=== PATIENT | female | born 1990 ===

== ENCOUNTER 2020-10-19 00:43 | Inpatient (IN) ==
[2020-10-19] MEDS ORDERED: OXYTOCIN 30 UNITS/500 ML BAG IV PRN ×2 (00:55→11:59)
[2020-10-19] MEDS ORDERED: ceFAZolin 2000MG 2,000 MG/15 ML SYR IV STA (00:55)
--- NOTE | 2020-10-19 01:14 | History & Physical Report ---
Date of Service October 19, 2020 Assessment & Plan (1) Uterine contractions at greater than 20 weeks of gestation: 29-year-old at 39 weeks and 5 days of gestation presenting with contractions and an active labor. Vital signs stable afebrile heart rate reassuring GBS positive Plan to admit, monitor, labs and epidural for pain per patient request. (2) GBS (group B Streptococcus carrier), +RV culture, currently : Admission and Anticipated Discharge Date Admission Date: October 19, 2020 History of Present Illness Primary Care Provider: NO PCP Patient is a 29-year-old at 39 weeks and 5 days of gestation who has been feeling contractions since yesterday 7 PM, they got closer and more painful and she walked in. Patient denies leakage of fluid or vaginal bleeding. Patient reports good movements. Her has been uncomplicated except GBS positive. Coronavirus testing was negative, she denies any symptoms or recent exposure. She is uncomfortable, crying and asking for epidural for pain. Patient History [employer] History No h/o of STD Review of Systems All systems reviewed & are unremarkable except as noted in HPI & below Physical Exam Constitutional: WD/WN, vitals as above well developed, well nourished and + acute distress (With contractions) Gastrointestinal (Abdomen): normal bowel sounds, soft, nontender, no hepatosplenomegaly (Gravid) Genitourinary: OB Exam Abdomen: + vertex Manual OB Exam: + cervical dilation 5 cm, + cervical effacement 80% and + station -1 OB Exam Monitor Tracing: + category I Bedside ultrasound, vertex.
[2020-10-19] MEDS: LACTATED RINGER'S 1,000 ML IV PRN ×3 (01:20→09:27)
[2020-10-19] MEDS ORDERED: ONDANSETRON INJ 2 MG/ML 2 ML VIAL IV PRN ×2 (01:21→02:00)
[2020-10-19] MEDS ORDERED: fentaNYL citrate 100 MCG/2 ML VIAL ONE (01:23)
[2020-10-19] MEDS ORDERED: BUPIVACAINE 0.25% 30 ML VIAL ONE (01:23)
[2020-10-19] MEDS ORDERED: fentaNYL 2MCG/ML ROPIVACAINE 1.25MG/ML 100 ML BAG EPI ONE (01:23)
[2020-10-19] MEDS ORDERED: ePHEDrine sulfate 50 MG/ML AMP ONE (01:23)
[2020-10-19] MEDS ORDERED: SODIUM CHLORIDE 0.9% INJ 10 ML VIAL ONE (01:23)
[2020-10-19 01:26] LABS: Hematocrit (blood only) 39.4 % (37-47); Hemoglobin 13.7 g/dL (12.0-16.0); Mean Corpuscular Hemoglobin 33.5 pg (25-34); Mean Corpuscular Hgb Conc 34.8 g/dL (32-36); Mean Corpuscular Volume 96.3 fL (80-100); Mean Platelet Volume 10.7 fL (7.4-10.4); Platelet Count 200 K/uL (130-400); RDW Coefficient of Variation 12.5 % (11.5-14.5); Red Blood Count 4.09 M/uL (4.2-5.4); White Blood Count 12.33 K/uL (4.8-10.8)
--- NOTE | 2020-10-19 01:35 | Anesthesiology Consultation ---
Date of Service October 19, 2020 Assessment & Plan (1) Encounter for pre-operative examination: Chart Review Chart Review: Acceptable Risk for Labor Epidural Consults Requested none ASA ASA2 Proposed Anesthesia Anesthesia Type: Labor Epidural Risk / Benefits Reviewed With: PT / POA / Parent / Guardian, Accepts Plan and Informed Consent Obtained History Height/Weight Height: 5 ft 5 in Weight: 70.76 kg Allergies Allergy/AdvReac Type Severity Reaction Status Date / Time amoxicillin Allergy Hives Verified 10/19/20 01:19 Medications Active Medications Generic Name Dose Route Start Last Admin Trade Name Freq PRN Reason Stop Dose Admin Lactated Ringer's 1,000 mls @ 150 mls/hr 10/19/20 00:55 10/19/20 01:20 Lr IV 10/21/20 00:54 999 mls/hr .[id number] PRN Administration L&D Protocol Protocol Exercise / Class Metabolic Activity II 4-5 Yardwork/Stairs/Walk up hill Past Anesthesia History No Hx of Anesthesia Complications and No Family Hx of Anesthesia Complications History of PONV No Hx of PONV and No Hx of Motion Sickness Social History Smoking Status: Never smoker Do You Dip or Chew Tobacco: No Hx Alcohol Use: No Hx Substance Use: No substance use type: does not use Physical Exam Vital Signs Last Vital Signs Pulse 86 10/19/20 01:25 BP 98/59 L 10/19/20 01:25 ENMT Mouth: no dentition abnormality Thyromental Distance: > or= 3.5 Finger Breadths Mallampati Class: II Neck normal visual inspection Respiratory normal respiratory effort Auscultation: lungs clear to auscultation bilaterally Cardiovascular Rate/Rhythm: regular rate and regular rhythm Testing Laboratory Results 10/19/20 01:09
[2020-10-19] MEDS ORDERED: diphenhydrAMINE 50 MG/ML VIAL IV PRN (02:00)
[2020-10-19] MEDS ORDERED: NALOXONE HCL 1 MG in SODIUM CHLORIDE 0.9% 1000ML 1,000 ML IV PRN (02:00)
[2020-10-19] MEDS ORDERED: fentaNYL 2MCG/ML ROPIVACAINE 1.25MG/ML 100 ML BAG EPI PRN (02:00)
[2020-10-19] MEDS ORDERED: NALOXONE HCL 0.4 MG/1 ML VIAL/CARP IV PRN (02:00)
[2020-10-19] MEDS ORDERED: ePHEDrine sulfate 50 MG/ML AMP IV PRN (02:00)
[2020-10-19] MEDS ORDERED: ceFAZolin 2000MG 2,000 MG/15 ML SYR IV SCH (09:00)
--- NOTE | 2020-10-19 10:20 | Obstetrical Progress Note ---
Date of Service October 19, 2020 Assessment & Plan Admission and Anticipated Discharge Date Admission Date: October 19, 2020 Physical Exam Genitourinary: Manual OB Exam: + cervical dilation 10 cm, + cervical effacement 100%, + station 0 and + amniotic fluid clear OB Exam Monitor Tracing: + external FHT monitor used, + external uterine monitor used, + categor y I and + normal FHT variability AROM with amni-hook clear fluid Results & Data ([facility]) Vital Signs (Past 12 Hours) Vital Signs Temp Pulse Resp BP Pulse Ox 10/19/20 10:17 128 H 82 L 10/19/20 10:12 97 H 99 10/19/20 10:11 106 H 88 L 10/19/20 10:07 108 H 115/67 98 10/19/20 10:06 98 H 84 L 10/19/20 10:02 97 H 97 10/19/20 09:57 91 H 100 10/19/20 09:52 78 101/55 L 99 10/19/20 09:47 81 100 10/19/20 09:42 82 100 10/19/20 09:37 90 127/75 100 10/19/20 09:32 78 100 10/19/20 09:30 18 10/19/20 09:27 83 100 10/19/20 09:22 94 H 100 10/19/20 09:21 139 H 112/71 93 10/19/20 09:17 86 98 10/19/20 09:12 93 H 99 10/19/20 09:08 90 104/60 10/19/20 09:07 89 99 10/19/20 09:06 99 H 89 L 10/19/20 09:02 75 98 10/19/20 08:57 71 100 10/19/20 08:52 74 100 10/19/20 08:51 93 H 112/66 90 10/19/20 08:47 82 98 10/19/20 08:44 88 93 10/19/20 08:42 75 100 10/19/20 08:38 81 107/61 10/19/20 08:37 88 100 10/19/20 08:34 91 H 88 L 10/19/20 08:32 86 98 10/19/20 08:27 86 98 10/19/20 08:22 101 H 97 10/19/20 08:21 96 H 114/66 10/19/20 08:20 86 90 10/19/20 08:17 76 99 10/19/20 08:14 87 93 10/19/20 08:12 83 95 10/19/20 08:07 83 102/60 99 10/19/20 08:03 101 H 93 10/19/20 08:02 77 96 10/19/20 07:57 73 96 10/19/20 07:52 78 97 10/19/20 07:51 82 106/60 10/19/20 07:47 74 99 10/19/20 07:42 74 98 10/19/20 07:41 85 92 10/19/20 07:37 79 98 10/19/20 07:36 75 99/57 L 10/19/20 07:32 78 99 10/19/20 07:27 83 100 10/19/20 07:25 89 87 L 10/19/20 07:22 81 113/59 L 99 10/19/20 07:17 94 H 96 10/19/20 07:12 84 100 10/19/20 07:07 83 113/65 100 10/19/20 07:02 86 99 10/19/20 07:00 37.0 C 18 10/19/20 06:57 85 99 10/19/20 06:53 83 106/61 10/19/20 06:52 91 H 96 10/19/20 06:51 84 92 10/19/20 06:47 88 100 10/19/20 06:44 85 128/66 94 10/19/20 06:42 86 99 10/19/20 06:37 92 H 96 10/19/20 06:36 99 H 92 10/19/20 06:32 84 100 10/19/20 06:30 18 10/19/20 06:27 83 99 10/19/20 06:22 97 H 101/57 L 98 10/19/20 06:17 85 96 10/19/20 06:16 87 94 10/19/20 06:12 95 H 97 10/19/20 06:07 78 104/59 L 94 10/19/20 06:02 84 96 10/19/20 06:01 81 94 10/19/20 06:00 18 10/19/20 05:57 83 93 10/19/20 05:52 76 99/55 L 93 10/19/20 05:47 77 94 10/19/20 05:42 82 94 10/19/20 05:37 78 96 10/19/20 05:36 84 98/58 L 10/19/20 05:32 87 98 10/19/20 05:30 18 10/19/20 05:29 79 94 10/19/20 05:27 80 96 10/19/20 05:23 83 104/59 L 10/19/20 05:22 82 96 10/19/20 05:17 77 96 10/19/20 05:12 84 99 10/19/20 05:08 81 105/55 L 10/19/20 05:07 84 99 10/19/20 05:02 94 H 98 10/19/20 05:01 97 H 93 10/19/20 05:00 37.4 C 18 10/19/20 04:57 86 98 10/19/20 04:52 92 H 98 10/19/20 04:51 96 H 108/63 92 10/19/20 04:47 80 93 10/19/20 04:42 79 93 10/19/20 04:40 78 94 10/19/20 04:37 76 94 10/19/20 04:36 81 86/51 L 10/19/20 04:34 99 H 94 10/19/20 04:32 78 93 10/19/20 04:28 97 H 94 10/19/20 04:27 92 H 92 10/19/20 04:22 76 93 10/19/20 04:21 82 79/48 L 10/19/20 04:17 77 93 10/19/20 04:12 76 93 10/19/20 04:07 75 86/51 L 93 10/19/20 04:02 75 93 10/19/20 04:00 18 10/19/20 03:57 79 93 10/19/20 03:52 75 89/53 L 94 10/19/20 03:46 80 95 10/19/20 03:42 79 94 10/19/20 03:41 76 94 10/19/20 03:36 82 99/53 L 96 10/19/20 03:31 85 96 10/19/20 03:30 18 10/19/20 03:26 79 96 10/19/20 03:22 82 101/55 L 90 10/19/20 03:21 92 H 100 10/19/20 03:16 82 100 10/19/20 03:11 89 99 10/19/20 03:07 100 H 99/50 L 10/19/20 03:06 84 100 10/19/20 03:01 97 H 99 10/19/20 03:00 18 10/19/20 02:56 91 H 98 10/19/20 02:51 89 101/56 L 98 10/19/20 02:49 82 109/59 L 10/19/20 02:47 90 103/55 L 10/19/20 02:46 95 H 99 10/19/20 02:45 95 H 107/56 L 91 10/19/20 02:43 118 H 101/67 10/19/20 02:41 90 106/56 L 97 10/19/20 02:39 78 113/57 L 10/19/20 02:37 104 H 90/59 L 10/19/20 02:36 85 93 10/19/20 02:33 100 H 84/59 L 10/19/20 02:31 82 86 L 10/19/20 02:30 18 10/19/20 02:29 74 96/57 L 89 L 10/19/20 02:26 78 89 L 10/19/20 02:25 18 10/19/20 02:23 81 96/54 L 91 10/19/20 02:21 82 85 L 10/19/20 02:20 18 10/19/20 02:18 80 88 L 10/19/20 02:16 77 100 10/19/20 02:15 84 117/57 L 10/19/20 02:13 100 H 91 10/19/20 02:11 95 H 82 L 10/19/20 02:10 18 10/19/20 02:06 106 H 98 10/19/20 02:05 93 H 18 103/59 L 10/19/20 02:03 76 102/58 L 10/19/20 02:02 78 104/59 L 10/19/20 02:01 76 100 10/19/20 02:00 83 18 92 10/19/20 01:59 85 101/55 L 10/19/20 01:57 77 110/55 L 10/19/20 01:55 76 18 111/52 L 97 10/19/20 01:53 86 104/59 L 10/19/20 01:52 87 92 10/19/20 01:50 96 H 100/62 94 10/19/20 01:46 105 H 92 10/19/20 01:45 103 H 96 10/19/20 01:40 99 H 94 10/19/20 01:25 36.5 C 86 18 98/59 L
--- NOTE | 2020-10-19 11:09 | Delivery Summary ---
Vaginal Delivery Summary Date of Service October 19, 2020 Vaginal Delivery Summary Delivery Note live female over intact perineum with delayed cord clamping with Apgars 9/9 weight pending. Cord blood obtained followed by spontaneous delivery of intact placenta. No tears. EBL 250 ml. Final sponge and instrument count are correct. Mom and baby stable.
[2020-10-19] MEDS ORDERED: HYDROCORTISONE ACETATE 25 MG SUPP PR PRN (11:59)
[2020-10-19] MEDS ORDERED: DIPHTHERIA/TETANUS/PERTUSSIS 0.5 ML SYR/VIAL IM ONE (11:59)
[2020-10-19] MEDS ORDERED: SUPERCREAM 0.870% 15 GM JAR EXT PRN (11:59)
[2020-10-19] MEDS ORDERED: BENZOCAINE 20% AER SPR 82.5 GM CAN EXT PRN (11:59)
[2020-10-19] MEDS ORDERED: bisacodyL 10 MG SUPP PR PRN (11:59)
[2020-10-19] MEDS: IBUPROFEN 600 MG TAB PO PRN ×2 (15:43→20:25)
[2020-10-19] MEDS: ACETAMINOPHEN 325 MG TAB PO PRN (17:31)
[2020-10-19] MEDS: DOCUSATE SODIUM 100 MG CAP PO SCH (20:25)
[2020-10-19] MEDS: SERTRALINE HCL 50 MG TABLET PO SCH (21:25)
[2020-10-20] MEDS: IBUPROFEN 600 MG TAB PO PRN ×6 (00:05→23:50)
[2020-10-20] MEDS: ACETAMINOPHEN 325 MG TAB PO PRN ×3 (03:37→15:11)
[2020-10-20 06:34] LABS: Hematocrit (blood only) 32.6 % (37-47); Hemoglobin 11.4 g/dL (12.0-16.0); Mean Corpuscular Hemoglobin 34.3 pg (25-34); Mean Corpuscular Volume 98.2 fL (80-100); Mean Platelet Volume 10.5 fL (7.4-10.4); Platelet Count 185 K/uL (130-400); RDW Coefficient of Variation 12.9 % (11.5-14.5); RDW Standard Deviation 46.1 fL (36.4-46.3); Red Blood Count 3.32 M/uL (4.2-5.4); White Blood Count 16.56 K/uL (4.8-10.8)
--- NOTE | 2020-10-20 07:26 | Obstetrical Progress Note ---
Date of Service October 20, 2020 Assessment & Plan Admission and Anticipated Discharge Date Admission Date: October 19, 2020 Subjective PPD#1 doing well out of bed passing gas Physical Exam Constitutional: WD/WN, vitals as above comfortable Genitourinary: abdomen soft and non-tender fundus firm no edema neg Alex's for discharge in AM Results & Data ([facility]) Vital Signs (Past 12 Hours) Laboratory Results - last 72 hr 10/19/20 10/19/20 10/19/20 01:09 02:05 02:05 WBC 12.33 H RBC 4.09 L Hgb 13.7 Hct 39.4 MCV 96.3 MCH 33.5 MCHC 34.8 RDW Std Deviation 44.0 RDW Coeff of Vane 12.5 Plt Count 200 MPV 10.7 H COVID-19 Eval [facility] SARS-CoV-2, RNA, NAAT NEGATIVE 10/20/20 06:11 WBC 16.56 H RBC 3.32 L Hgb 11.4 L Hct 32.6 L MCV 98.2 MCH 34.3 H MCHC 35.0 RDW Std Deviation 46.1 RDW Coeff of Vane 12.9 Plt Count 185 MPV 10.5 H COVID-19 Eval Order SARS-CoV-2, RNA, NAAT Vital Signs Temp Pulse Pulse Resp BP BP Pulse Ox 10/20/20 03:20 36.7 C 69 18 116/79 97 10/20/20 00:20 36.7 C 67 18 102/64 97 10/19/20 19:30 36.6 C 77 16 100/67 99
[2020-10-20] MEDS: PRENATAL VITAMIN 1 TAB PO SCH (08:12)
[2020-10-20] MEDS: DOCUSATE SODIUM 100 MG CAP PO SCH ×2 (08:12→19:45)
[2020-10-20] MEDS ORDERED: NON-FORMULARY MEDICATION (Prenatal Vit No.130-Iron-Folic [Prenatal Vitamin] 27 mg iron- 80 PO SCH (09:00)
[2020-10-20] MEDS ORDERED: SERTRALINE HCL 50 MG TABLET PO SCH (09:00)
[2020-10-20] MEDS: SERTRALINE HCL 50 MG TABLET PO SCH (19:45)
[2020-10-20] MEDS ORDERED: bisacodyL 5 MG TABEC PO SCH (20:00)
[2020-10-21] MEDS: IBUPROFEN 600 MG TAB PO PRN ×2 (03:28→11:18)
[2020-10-21 07:25] LABS: Hematocrit (blood only) 33.2 % (37-47); Hemoglobin 11.3 g/dL (12.0-16.0)
[2020-10-21] MEDS: PRENATAL VITAMIN 1 TAB PO SCH (07:58)
[2020-10-21] MEDS: DOCUSATE SODIUM 100 MG CAP PO SCH (07:58)
[2020-10-21 08:40] LABS: Basophils # (auto) 0.03 K/uL (0-0.2); Basophils % (auto) 0.3 %; Eosinophils # (auto) 0.23 K/uL (0-0.5); Eosinophils % (auto) 1.9 %; Immature Granulocytes # (auto) 0.04 K/uL (0.00-0.02); Immature Granulocytes % (auto) 0.3 %; Lymphocytes # (auto) 2.14 K/uL (1.2-3.4); Lymphocytes % (auto) 18.1 %; Mean Corpuscular Hemoglobin 33.6 pg (25-34); Mean Platelet Volume 10.5 fL (7.4-10.4); Monocytes # (auto) 0.54 K/uL (0.11-0.59); Monocytes % (auto) 4.6 %; Neutrophils # (auto) 8.83 K/uL (1.4-6.5); Neutrophils % (auto) 74.8 %; Platelet Count 214 K/uL (130-400); RDW Coefficient of Variation 12.9 % (11.5-14.5); Red Blood Count 3.36 M/uL (4.2-5.4); White Blood Count 11.81 K/uL (4.8-10.8)
--- NOTE | 2020-10-21 08:41 | Obstetrical Progress Note ---
Date of Service October 21, 2020 Assessment & Plan Admission and Anticipated Discharge Date Admission Date: October 19, 2020 Subjective Patient is seen and examined. She feels well, no complaints. Ambulating without dizziness Voiding without difficulty Tolerating regular diet with out N&V Bleeding is minimal No fever/ chills/ CP/ SOB/ N&V/ Leg pain Breast feeding without problems Vital Signs Temp Pulse Resp BP Pulse Ox 10/21/20 07:45 36.7 C 81 16 130/86 10/20/20 23:35 36.9 C 62 20 119/75 98 10/20/20 15:14 36.5 C 69 16 111/74 98 10/20/20 09:00 36.7 C 66 16 102/79 Lab Results 10/19/20 10/19/20 10/19/20 Range/Units 01:09 02:05 02:05 WBC 12.33 H (4.8-10.8) K/uL RBC 4.09 L (4.2-5.4) M/uL Hgb 13.7 (12.0-16.0) g/dL Hct 39.4 (37-47) % MCV 96.3 (80-100) fL MCH 33.5 (25-34) pg MCHC 34.8 (32-36) g/dL RDW Std Deviation 44.0 (36.4-46.3) fL RDW Coeff of Vane 12.5 (11.5-14.5) % Plt Count 200 (130-400) K/uL MPV 10.7 H (7.4-10.4) fL Immature Gran % (Auto) % Neut % (Auto) % Lymph % (Auto) % [place] % (Auto) % Eos % (Auto) % Baso % (Auto) % Neut # (Auto) (1.4-6.5) K/uL Lymph # (Auto) (1.2-3.4) K/uL [place] # (Auto) (0.11-0.59) K/uL Eos # (Auto) (0-0.5) K/uL Baso # (Auto) (0-0.2) K/uL Immature Gran # (Auto) (0.00-0.02) K/uL COVID-19 Eval Order Covid19 [facility] SARS-CoV-2, RNA, NAAT NEGATIVE (NEGATIVE) 10/20/20 10/21/20 Range/Units 06:11 06:38 WBC 16.56 H 11.81 H (4.8-10.8) K/uL RBC 3.32 L 3.36 L (4.2-5.4) M/uL Hgb 11.4 L 11.3 L (12.0-16.0) g/dL Hct 32.6 L 33.2 L (37-47) % MCV 98.2 (80-100) fL MCH 34.3 H 33.6 (25-34) pg MCHC 35.0 (32-36) g/dL RDW Std Deviation 46.1 46.0 (36.4-46.3) fL RDW Coeff of Vane 12.9 12.9 (11.5-14.5) % Plt Count 185 214 (130-400) K/uL MPV 10.5 H 10.5 H (7.4-10.4) fL Immature Gran % (Auto) 0.3 % Neut % (Auto) 74.8 % Lymph % (Auto) 18.1 % [place] % (Auto) 4.6 % Eos % (Auto) 1.9 % Baso % (Auto) 0.3 % Neut # (Auto) 8.83 H (1.4-6.5) K/uL Lymph # (Auto) 2.14 (1.2-3.4) K/uL [place] # (Auto) 0.54 (0.11-0.59) K/uL Eos # (Auto) 0.23 (0-0.5) K/uL Baso # (Auto) 0.03 (0-0.2) K/uL Immature Gran # (Auto) 0.04 H (0.00-0.02) K/uL COVID-19 Eval Order SARS-CoV-2, RNA, NAAT (NEGATIVE) PE: General: Alert, orientedx3, NAD Abd: soft, NT, fundus firm, below Umbilicus Perineum intact, Lochia rubra minimal Ext; NT, no edema AP: 29 yo s/p , ppd# 2 VSS Afebrile doing well Continue routine care All questions were answered DIscussed when to call D/C home , f/u [facility] office Results & Data ([facility]) Vital Signs (Past 12 Hours) Vital Signs Temp Pulse Resp BP Pulse Ox 10/21/20 07:45 36.7 C 81 16 130/86 10/20/20 23:35 36.9 C 62 20 119/75 98
[2020-10-21 08:43] LABS: Mean Corpuscular Volume 98.2 fL (80-100)
== END 2020-10-21 14:30 | disposition home or self-care (01) | DRG 807 ==
LOC: OPB 00:43 → 4S1 00:46 → 4S2 13:48